=== PATIENT | male | born 1990 | race Caucasian/White ===

== ENCOUNTER 2018-09-08 15:13 | Emergency (ER) | payer OTHER ==
[2018-09-08] MEDS: LIDOCAINE W/EPINEPHRINE 1% 20ML VIAL SC (15:39)
== END 2018-09-08 16:11 | disposition home or self-care (01) ==
LOC: M ED 15:13
DX: S01.01XA Laceration without foreign body of scalp, initial encounter (principal); W22.8XXA Striking against or struck by other objects, initial encounter; Y92.019 Unspecified place in single-family (private) house as the place of occurrence of the external cause
CPT/HCPCS: 12002